=== PATIENT | female | born 1995 | race Caucasian/White ===

== ENCOUNTER 2016-12-10 18:04 | Emergency (ER) | payer BC, OTHER ==
[~2016-12-10] VITALS: Ht 170.2 cm; Wt 74.8 kg
--- NOTE | 2016-12-10 18:19 | NUR ---
Pt ambulatory to bed 5b, ua sample obtained and sent to lab.
--- NOTE | 2016-12-10 18:28 | NUR ---
Dr david henaocentral [facility] for exam.
[2016-12-10 18:38] LABS: *BILIRUBIN,URIN NEGATIVE (NEGATIVE); *BLOOD, URINE 2+ (NEGATIVE); *COLOR,URINE YELLOW (YELLOW); *KETONES,URINE NEGATIVE (NEGATIVE); *PROTEIN,URINE 1+ (NEGATIVE); *UROBILINOGEN,URINE 0.2 E.U./dl (NORMAL); LEUKOCYTE ESTERASE ,URINE 1+ (NEGATIVE); NITRITE, URINE NEGATIVE (NEGATIVE); UGLUCOSE NEGATIVE (NEGATIVE)
[2016-12-10 18:39] LABS: *URINE HCG, QUAL NEGATIVE (NEGATIVE)
[2016-12-10 18:48] LABS: *CLARITY,URINE CLOUDY (CLEAR)
[2016-12-10 18:53] LABS: BACTERIA,URINE MODERATE /HPF (NONE SEEN); MUCUS,URINE MANY /LPF (0-FEW); SQUAMOUS EPITHELIAL CELL,UR MANY /HPF (NONE SEEN); WBC,URINE 50-80 /HPF (0-3)
[2016-12-10] MEDS ORDERED: PHENAZOPYRIDINE HCL 100 MG TABLET PO ONE (19:00)
[2016-12-10] MEDS ORDERED: NITROFURANTOIN/NITROFURAN MAC 100 MG CAPSULE PO ONE (19:00)
--- NOTE | 2016-12-10 19:16 | NUR ---
Patient discharged to home in stable conditon. Written and verbal after care instructions given. Patient verbalizes understanding of instructions.
[2016-12-10] MEDS ORDERED: PHENAZOPYRIDINE HCL 100 MG TABLET ONE (19:23)
[2016-12-10] MEDS ORDERED: NITROFURANTOIN/NITROFURAN MAC 100 MG CAPSULE ONE (19:23)
== END 2016-12-10 19:18 | disposition home or self-care (01) ==
LOC: ER 18:11
DX: N39.0 Urinary tract infection, site not specified (principal); G43.909 Migraine, unspecified, not intractable, without status migrainosus
CPT/HCPCS: 81001; 84703; 99283; A4663

== ENCOUNTER 2017-02-01 11:03 | Outpatient (CLI) | payer BC, OTHER ==
[2017-02-01 11:39] LABS: BASOPHILS % (AUTO) 0.7 % (0.0-2.0); EOSINOPHILS # (AUTO) 0.1 K/uL (0.0-0.7); EOSINOPHILS % (AUTO) 1.5 % (0.0-7.0); HEMATOCRIT 42.2 % (37-47); LYMPHOCYTES # (AUTO) 1.6 K/UL (0.8-4.8); LYMPHOCYTES % (AUTO) 31.2 % (20.5-51.5); MEAN CORPUSCULAR HEMOGLOBIN 27.9 UUG (27.0-31.0); MEAN CORPUSCULAR HGB CONC 33 g/dL (32.0-37.0); MEAN CORPUSCULAR VOLUME 84.3 FL (81.0-99.0); MONOCYTES # (AUTO) 0.4 K/UL (0.1-1.30); MONOCYTES % (AUTO) 7.1 % (0.0-11.0); NEUTROPHILS % (AUTO) 59.5 % (38.5-71.5); PLATELET COUNT (AUTO) 253 K/UL (150-450); WHITE BLOOD COUNT (AUTO) 5.1 K/UL (4.0-11.2)
[2017-02-01 11:51] LABS: CREATININE 0.7 mg/dL (0.6-1.3); POTASSIUM 3.5 mmol/L (3.5-5.1)
== END 2017-02-01 23:59 | disposition home or self-care (01) ==
LOC: LAB 11:03
PROVIDERS: ATTEND Otolaryngology
DX: Z01.812 Encounter for preprocedural laboratory examination (principal); J35.01 Chronic tonsillitis
CPT/HCPCS: 36415; 85025; 85730

== ENCOUNTER 2017-02-09 05:52 | Day surgery (SDC) | payer BC, OTHER ==
[2017-02-09] MEDS ORDERED: PROPOFOL 200 MG/20 ML BOTTLE IV ONE (05:53)
[2017-02-09] MEDS ORDERED: CEFAZOLIN 1 G VIAL MC ONE (05:53)
[2017-02-09] MEDS ORDERED: LIDOCAINE HCL 1% 20 ML VIAL MC ONE (05:53)
[2017-02-09] MEDS ORDERED: DEXAMETHASONE SOD PHOSPHATE 10 MG INJ IV ONE (05:53)
[2017-02-09] MEDS ORDERED: ONDANSETRON 4 MG/2 ML VIAL IV ONE (05:53)
[2017-02-09] MEDS ORDERED: ESMOLOL HCL 100 MG/10 ML VIAL IV ONE (05:53)
[2017-02-09] MEDS ORDERED: DESFLURANE ANESTHESIA GAS 240 ML BOTTLE IH ONE (05:53)
[2017-02-09] MEDS ORDERED: CEFAZOLIN 50 ML IV ONE (06:07)
[2017-02-09 06:12] LABS: *URINE HCG, QUAL NEGATIVE (NEGATIVE)
[2017-02-09] MEDS ORDERED: BUPIVACAINE 0.25% 30 ML VIAL ONE (06:35)
[2017-02-09] MEDS ORDERED: MIDAZOLAM HCL 2 MG/2 ML VIAL ONE (06:53)
[2017-02-09] MEDS ORDERED: FENTANYL CITRATE 100 MCG/2 ML AMPUL ONE ×2 (06:53→08:21)
[2017-02-09] MEDS ORDERED: ROCURONIUM BROMIDE 50 MG/5 ML VIAL ONE (06:53)
[2017-02-09] MEDS ORDERED: SUCCINYLCHOLINE CHLORIDE 200 MG/10 ML VIAL ONE (06:54)
[2017-02-09] MEDS ORDERED: ONDANSETRON 4 MG/2 ML VIAL ONE (08:22)
[2017-02-09] MEDS ORDERED: OXYCODONE/APAP 5-325 MG TABLET ONE (09:10)
== END 2017-02-09 10:20 | disposition home or self-care (01) ==
LOC: DS 05:52
PROVIDERS: ATTEND Otolaryngology
DX: J35.01 Chronic tonsillitis (principal); G43.909 Migraine, unspecified, not intractable, without status migrainosus; N39.0 Urinary tract infection, site not specified; Z87.81 Personal history of (healed) traumatic fracture
CPT/HCPCS: 84703; J0330; J0690; J1100; J2250; J2405; J3010; J3490

== ENCOUNTER 2017-04-04 09:34 | Outpatient (CLI) | payer BC, OTHER ==
[2017-04-04 10:06] LABS: BASOPHILS % (AUTO) 0.8 % (0.0-2.0); EOSINOPHILS # (AUTO) 0.1 K/uL (0.0-0.7); HEMATOCRIT 41.2 % (37-47); HEMOGLOBIN 13.3 G/DL (12.0-16.0); LYMPHOCYTES % (AUTO) 42.9 % (20.5-51.5); MEAN CORPUSCULAR HEMOGLOBIN 27.3 UUG (27.0-31.0); MEAN CORPUSCULAR HGB CONC 32 g/dL (32.0-37.0); MEAN CORPUSCULAR VOLUME 84.3 FL (81.0-99.0); MONOCYTES # (AUTO) 0.3 K/UL (0.1-1.30); MONOCYTES % (AUTO) 5.9 % (0.0-11.0); NEUTROPHILS # (AUTO) 2.3 K/UL (1.8-8.9); NEUTROPHILS % (AUTO) 48.4 % (38.5-71.5); PLATELET COUNT (AUTO) 277 K/UL (150-450); RED BLOOD CELL COUNT(AUTO) 4.89 MIL/UL (4.2-5.4); WHITE BLOOD COUNT (AUTO) 4.7 K/UL (4.0-11.2)
[2017-04-04 10:19] LABS: BILIRUBIN,TOTAL 0.4 mg/dL (0.2-1.0); CREATININE 0.7 mg/dL (0.6-1.3); POTASSIUM 3.8 mmol/L (3.5-5.1); TOTAL PROTEIN, SERUM 7.1 g/dL (6.4-8.2)
[2017-04-04 10:27] LABS: THYROID STIMULATING HORMONE 2.074 mIU/mL (0.358-3.740)
== END 2017-04-04 23:59 | disposition home or self-care (01) ==
LOC: LAB 09:34
PROVIDERS: ATTEND Psychiatry & Neurology Psychiatry
DX: R53.83 Other fatigue (principal)
CPT/HCPCS: 36415; 82306; 84443; 85025

== ENCOUNTER 2017-05-28 20:59 | Emergency (ER) | payer BC, OTHER ==
[~2017-05-28] VITALS: Ht 170.2 cm; Wt 70.8 kg
--- NOTE | 2017-05-28 22:13 | NUR ---
Patient discharged to home in stable conditon. Written and verbal after care instructions given. Patient verbalizes understanding of instructions.
== END 2017-05-28 22:14 | disposition home or self-care (01) ==
LOC: ER 20:59
DX: R22.1 Localized swelling, mass and lump, neck (principal); G43.909 Migraine, unspecified, not intractable, without status migrainosus
CPT/HCPCS: A4663

== ENCOUNTER 2019-07-27 04:17 | Emergency (ER) | payer BC, OTHER ==
[~2019-07-27] VITALS: Ht 170.2 cm; Wt 72.6 kg
[2019-07-27] MEDS ORDERED: IV NORMAL SALINE 1000 ML BAG IV ONE (04:30)
[2019-07-27] MEDS ORDERED: ONDANSETRON 4 MG/2 ML VIAL IV ONE (04:30)
[2019-07-27] MEDS ORDERED: ONDANSETRON 4 MG/2 ML VIAL ONE (04:35)
--- NOTE | 2019-07-27 04:39 | NUR ---
Patient came into ER with mother for c/o 5 episode of N/V and diarrhea for the past 4hrs. Denies abdominal pain.
[2019-07-27 04:50] LABS: BASOPHILS % (AUTO) 0.3 % (0.0-2.0); EOSINOPHILS % (AUTO) 0.2 % (0.0-7.0); HEMATOCRIT 43.9 % (31.2-41.9); HEMOGLOBIN 14.7 g/dL (10.9-14.3); LYMPHOCYTES # (AUTO) 0.5 K/uL (20.0-40.0); LYMPHOCYTES % (AUTO) 4.7 % (20.5-51.5); MEAN CORPUSCULAR HEMOGLOBIN 27.7 uug (24.7-32.8); MEAN CORPUSCULAR HGB CONC 33 g/dL (32.3-35.6); MEAN CORPUSCULAR VOLUME 82.9 fL (75.5-95.3); MONOCYTES # (AUTO) 0.3 K/uL (2.0-10.0); MONOCYTES % (AUTO) 2.8 % (0.0-11.0); NEUTROPHILS # (AUTO) 9.8 K/uL (1.8-8.9); PLATELET COUNT (AUTO) 287 K/uL (179-408); WHITE BLOOD COUNT (AUTO) 10.7 K/uL (3.8-11.8)
[2019-07-27 04:53] LABS: *URINE HCG, QUAL NEGATIVE (NEGATIVE)
[2019-07-27] MEDS ORDERED: LORAZEPAM 0.5 MG TABLET PO ONE (05:00)
[2019-07-27 05:53] LABS: BILIRUBIN,DIRECT 0.2 mg/dL (0.0-0.2); BILIRUBIN,TOTAL 0.7 mg/dL (0.2-1.0); CREATININE 0.7 mg/dL (0.6-1.3); POTASSIUM 3.9 mmol/L (3.5-5.1); TOTAL PROTEIN, SERUM 7.8 g/dL (6.4-8.2)
--- NOTE | 2019-07-27 05:53 | NUR ---
urine collected and sent to lab
[2019-07-27 06:30] LABS: *BILIRUBIN,URIN NEGATIVE (NEGATIVE); *BLOOD, URINE NEGATIVE (NEGATIVE); *CLARITY,URINE CLEAR (CLEAR); *COLOR,URINE YELLOW (YELLOW); *KETONES,URINE NEGATIVE (NEGATIVE); *UROBILINOGEN,URINE 0.2 E.U./dl (NORMAL); LEUKOCYTE ESTERASE ,URINE NEGATIVE (NEGATIVE); NITRITE, URINE NEGATIVE (NEGATIVE); PH,URINE 8.5 (5.0-8.0); UGLUCOSE NEGATIVE (NEGATIVE)
[2019-07-27 06:39] VITALS: BP 122/68
--- NOTE | 2019-07-27 06:39 | NUR ---
IV removed. Catheter intact and site benign. Pressure and 4x4 gauze applied to site. No bleeding noted. Patient discharged to home in stable conditon. Written and verbal after care instructions given. Patient verbalizes understanding of instructions. pt ambulating with steady gait.
== END 2019-07-27 06:40 | disposition home or self-care (01) ==
LOC: ER 04:23
DX: R10.33 Periumbilical pain (principal); R11.10 Vomiting, unspecified; R19.7 Diarrhea, unspecified
CPT/HCPCS: 36415; 80048; 80076; 81001; 83605; 83690; 84703; 85025; 87400; 96361; 96374; 99283; J2405; A4663; J7030

== ENCOUNTER 2019-07-27 18:16 | Emergency (ER) | payer BC, OTHER ==
[~2019-07-27] VITALS: Ht 170.2 cm; Wt 72.6 kg
[2019-07-27] MEDS ORDERED: diphenhydrAMINE 50 MG/1 ML VIAL IV ONE (18:45)
[2019-07-27] MEDS ORDERED: diphenhydrAMINE 50 MG/1 ML VIAL ONE (18:45)
[2019-07-27] MEDS ORDERED: METOCLOPRAMIDE HCL 10 MG/2 ML VIAL IV ONE (18:45)
[2019-07-27] MEDS ORDERED: IV NS 1000 ML 1,000 ML IV ONE (18:45)
[2019-07-27] MEDS ORDERED: METOCLOPRAMIDE HCL 10 MG/2 ML VIAL ONE (18:45)
[2019-07-27] MEDS ORDERED: IV NORMAL SALINE 250 ML IV ONE (18:52)
[2019-07-27] MEDS ORDERED: SWABABLE VALVE TRANSFER SET EA MC ONE (18:52)
[2019-07-27] MEDS ORDERED: IOHEXOL 300MG/ML 100 ML INFUS..BTL ONE (18:52)
[2019-07-27 18:58] LABS: BASOPHILS % (AUTO) 0.2 % (0.0-2.0); HEMATOCRIT 40.5 % (31.2-41.9); HEMOGLOBIN 13.2 g/dL (10.9-14.3); LYMPHOCYTES # (AUTO) 0.7 K/uL (20.0-40.0); LYMPHOCYTES % (AUTO) 10.2 % (20.5-51.5); MEAN CORPUSCULAR HEMOGLOBIN 27.4 uug (24.7-32.8); MEAN CORPUSCULAR HGB CONC 33 g/dL (32.3-35.6); MEAN CORPUSCULAR VOLUME 84.3 fL (75.5-95.3); MONOCYTES # (AUTO) 0.3 K/uL (2.0-10.0); MONOCYTES % (AUTO) 4.8 % (0.0-11.0); NEUTROPHILS # (AUTO) 5.5 K/uL (1.8-8.9); NEUTROPHILS % (AUTO) 84.8 % (38.5-71.5); PLATELET COUNT (AUTO) 208 K/uL (179-408); WHITE BLOOD COUNT (AUTO) 6.5 K/uL (3.8-11.8)
--- NOTE | 2019-07-27 19:07 | NUR ---
Patient out of unit for ct scan via [place]
[2019-07-27 19:14] LABS: BILIRUBIN,DIRECT 0.3 mg/dL (0.0-0.2); CREATININE 0.8 mg/dL (0.6-1.3); POTASSIUM 3.2 mmol/L (3.5-5.1); TOTAL PROTEIN, SERUM 6.8 g/dL (6.4-8.2)
--- NOTE | 2019-07-27 19:25 | NUR ---
Patient back from ct scan with no distress noted.
[2019-07-27] MEDS ORDERED: ACETAMINOPHEN ES 500 MG TABLET ONE (19:51)
--- NOTE | 2019-07-27 19:52 | NUR ---
Patient states N/V is improve. Able to tolerate PO intake. Oral temp is 100.4 F.
[2019-07-27] MEDS ORDERED: POTASSIUM CHLORIDE 20 MEQ TAB.PRT.SR PO ONE (20:00)
[2019-07-27] MEDS ORDERED: ACETAMINOPHEN ES 500 MG TABLET PO ONE (20:00)
[2019-07-27] MEDS ORDERED: MAGNESIUM SULFATE/D5W 200 ML ONE (20:01)
[2019-07-27] MEDS: MAGNESIUM SULFATE/D5W 100 ML IV SCH ×2 (20:03→20:52)
[2019-07-27 20:07] LABS: *URINE HCG, QUAL NEGATIVE (NEGATIVE)
[2019-07-27 20:08] LABS: *BILIRUBIN,URIN NEGATIVE (NEGATIVE); *BLOOD, URINE NEGATIVE (NEGATIVE); *COLOR,URINE YELLOW (YELLOW); *KETONES,URINE NEGATIVE (NEGATIVE); *UROBILINOGEN,URINE 0.2 E.U./dl (NORMAL); LEUKOCYTE ESTERASE ,URINE NEGATIVE (NEGATIVE); NITRITE, URINE NEGATIVE (NEGATIVE); PH,URINE 5.5 (5.0-8.0); UGLUCOSE NEGATIVE (NEGATIVE)
[2019-07-27 20:14] LABS: *CLARITY,URINE SLIGHTLY HAZY (CLEAR)
[2019-07-27 20:15] LABS: RBC,URINE 0-3 /HPF (0-3); SQUAMOUS EPITHELIAL CELL,UR MODERATE /HPF (NONE SEEN)
[2019-07-27 20:34] LABS: *MONOTEST NEGATIVE (NEGATIVE)
[2019-07-27] MEDS ORDERED: POTASSIUM CHLORIDE 20 MEQ TAB.PRT.SR ONE (20:57)
--- NOTE | 2019-07-27 21:25 | NUR ---
Patient able to tolerate PO fluid with no N/V.
--- NOTE | 2019-07-27 21:58 | NUR ---
IV removed. Catheter intact and site benign. Pressure and 4x4 gauze applied to site. No bleeding noted.
--- NOTE | 2019-07-27 21:59 | NUR ---
Patient discharged to home in stable conditon with daughter taking patient home. Written and verbal after care instructions given. Patient verbalizes understanding of instructions. Walked out of ER with no distress noted.
[2019-07-27 22:00] VITALS: BP 118/67
== END 2019-07-27 22:01 | disposition home or self-care (01) ==
LOC: ER 18:16
DX: R10.30 Lower abdominal pain, unspecified (principal); R11.10 Vomiting, unspecified; R19.7 Diarrhea, unspecified; R50.9 Fever, unspecified
CPT/HCPCS: 36415; 74177; 80048; 80076; 81000; 81001; 83605; 83690; 84703; 85025; 86308; 86403; 87070; 96361; 96365; 96375; 99284; J1200; J2765; J3475; Q9967; A4663; A9150; J7030; J7050

== ENCOUNTER 2020-05-28 10:14 | Outpatient (CLI) | payer BC, OTHER ==
[2020-05-28 10:59] LABS: BILIRUBIN,TOTAL 0.4 mg/dL (0.2-1.0); CREATININE 0.8 mg/dL (0.6-1.3); POTASSIUM 4.2 mmol/L (3.5-5.1); TOTAL PROTEIN, SERUM 7.5 g/dL (6.4-8.2)
[2020-05-28 11:19] LABS: THYROID STIMULATING HORMONE 1.281 mIU/mL (0.358-3.740)
[2020-05-29 10:08] LABS: HEPATITIS B SURFACE AB Reactive (.)
== END 2020-05-28 23:59 | disposition home or self-care (01) ==
LOC: LAB 10:14
PROVIDERS: ATTEND Obstetrics & Gynecology
DX: Z20.2 Contact with and (suspected) exposure to infections with a predominantly sexual mode of transmission (principal)
CPT/HCPCS: 36415; 84443; 86706; 86803; 87806